=== PATIENT | female | born 1945 | race Caucasian/White ===

== ENCOUNTER 2023-05-09 09:34 | Emergency (ER) | payer MEDICARE, SELFPAY ==
[2023-05-09] VITALS (30 sets, daily range): BP systolic 101–168; BP diastolic 60–75; PULSE 86–100; RESP 18; TEMP 36.3; O2SAT 91–98; BMI 40.2
[2023-05-09 10:23] LABS: Troponin, Point-of-Care* 0.01 ng/ml (0.01-0.04)
[2023-05-09 10:45] LABS: Basophils Absolute Auto 0.03 K/uL (0.00-0.30); Basophils Percent Auto 0.4 % (0.0-3.0); Eosinophils Absolute Auto 0.26 K/uL (0.00-0.50); Eosinophils Percent Auto 3.1 % (0.0-7.0); Hematocrit 33.9 % (33.0-51.0); Immature Granulocytes Abs Auto 0.11 K/uL (0.00-0.30); Immature Granulocytes Pct Auto 1.3 %; Lymphocytes Absolute Auto 2.47 K/uL (0.90-2.90); Lymphocytes Percent Auto 29.3 % (20-44); Mean Corpuscular HGB Conc 32 gm/dL (32-36); Mean Corpuscular Hemoglobin 31 pg (26-34); Mean Corpuscular Volume 96 fL (80-100); Monocytes Percent Auto 7.7 % (0.0-11.0); Neutrophils Absolute Auto 4.92 K/uL (1.7-7.0); Neutrophils Percent Auto 58.2 % (42.0-72.0); Platelet Count* 287 K/uL (140-440); Red Blood Count 3.55 m/uL (4.00-5.20); White Blood Count* 8.44 K/uL (4.50-11.00)
--- NOTE | 2023-05-09 10:45 | ED.CHESTPAIN ---
HPI - Chest Pain General Time Seen by Provider: 10:46 Date Seen: 05/09/23 Chief Complaint: Chest Pain Stated Complaint: chest pain Time Seen by Provider: 05/09/23 10:44 Source: patient and RN notes reviewed Mode of arrival: ambulatory Limitations: no limitations History of Present Illness HPI narrative: this 77-year-old female is ambulatory into the ED with left-sided chest pain. It has been there about 3 hours. She denies any radiation. She has had a history of an CA in May 2004 with stent placement. The pain today does not feel like that. She states that felt more initially like a pulled muscle, she had shoveled snow. She had went to work felt fine and then when she came home started having increased arm and shoulder pain. This does feel different. She is not short of breath with it, no palpitations. She admits she had a bad cold about 2 weeks ago and had a lot of coughing with it. That is better now. She is having no acute GI symptoms with this but does tell me that if she eats too fast her food will get stuck. She sometimes will have to make herself vomit to get the food to pass. She denies any acute heartburn or reflux symptoms. Did review with her that she really should get scheduled to have an EGD, regardless of what happens today, she will need to follow up and get that scheduled through her primary care provider. she does state that she is had pedal and lower extremity edema that is been problematic, is improved by the diuretic her doctor prescribed. She denies any dysphagia this am, states that she had a chicken salad sandwich that went down too goo. She does not believe she is had any stress testing since the stent placement. She is scheduled to have an echo next week. MD complaint: chest pain Pertinent past history: coronary artery disease and prior CA Related Data On Oral Contraceptives: No Home Medications Medication Instructions Recorded Confirmed allopurinol 100 mg tablet 200 mg PO DAILY 05/09/23 05/09/23 amlodipine 10 mg tablet 10 mg PO DAILY 05/09/23 05/09/23 atorvastatin 20 mg tablet 20 mg PO QPM 05/09/23 05/09/23 atorvastatin 40 mg tablet 40 mg PO QPM 05/09/23 05/09/23 famotidine 20 mg tablet 20 mg PO QPM 05/09/23 05/09/23 furosemide 20 mg tablet 20 mg PO QAM 05/09/23 05/09/23 furosemide 40 mg tablet 40 mg PO QAM 05/09/23 05/09/23 lisinopril 30 mg tablet 30 mg PO DAILY 05/09/23 05/09/23 metformin 500 mg tablet,extended 500 mg PO QPM 05/09/23 05/09/23 release 24 hr metoprolol succinate 100 mg 100 mg PO DAILY 05/09/23 05/09/23 tablet,extended release 24 hr spironolactone 25 mg tablet 25 mg PO QAM 05/09/23 05/09/23 trospium 20 mg tablet 20 mg PO QPM 05/09/23 05/09/23 Previous Rx's Medication Instructions Recorded omeprazole 20 mg capsule,delayed 20 mg PO DAILY #14 caps 05/09/23 release Allergies Allergy/AdvReac Type Severity Reaction Status Date / Time No Known Drug Allergies Allergy Verified 05/09/23 09:43 Review of Systems Status of ROS Reports: 6 or more systems reviewed and unremarkable except as noted in History and below Exam Const Vital Signs, click to edit/add: Vital Signs - 24 hr 05/09/23 09:41 05/09/23 09:47 05/09/23 09:58 Temperature 97.4 F L Pulse Rate 91 93 Pulse Rate [Right Pulse Oximeter] 100 Respiratory Rate 18 Blood Pressure 142/64 H Blood Pressure [Left Upper Arm] 168/67 H Pulse Oximetry 98 98 97 Oxygen Delivery Method Room Air 05/09/23 10:00 05/09/23 10:02 05/09/23 10:23 Temperature Pulse Rate 92 90 91 Pulse Rate [Right Pulse Oximeter] Respiratory Rate Blood Pressure 136/68 Blood Pressure [Left Upper Arm] Pulse Oximetry 98 98 98 Oxygen Delivery Method 05/09/23 10:24 05/09/23 10:30 05/09/23 10:41 Temperature Pulse Rate 92 90 90 Pulse Rate [Right Pulse Oximeter] Respiratory Rate Blood Pressure 138/72 130/69 Blood Pressure [Left Upper Arm] Pulse Oximetry 97 97 97 Oxygen Delivery Method 05/09/23 10:45 05/09/23 11:05 05/09/23 11:06 Temperature Pulse Rate 91 97 94 Pulse Rate [Right Pulse Oximeter] Respiratory Rate Blood Pressure 127/71 Blood Pressure [Left Upper Arm] Pulse Oximetry 97 96 94 Oxygen Delivery Method 05/09/23 11:09 05/09/23 11:12 05/09/23 11:15 Temperature Pulse Rate 92 92 93 Pulse Rate [Right Pulse Oximeter] Respiratory Rate Blood Pressure 141/75 H Blood Pressure [Left Upper Arm] Pulse Oximetry 95 95 93 Oxygen Delivery Method 05/09/23 11:22 05/09/23 11:30 05/09/23 11:41 Temperature Pulse Rate 95 95 91 Pulse Rate [Right Pulse Oximeter] Respiratory Rate Blood Pressure 111/60 101/67 Blood Pressure [Left Upper Arm] Pulse Oximetry 94 91 91 Oxygen Delivery Method 05/09/23 11:45 05/09/23 12:00 05/09/23 12:01 Temperature Pulse Rate 90 89 89 Pulse Rate [Right Pulse Oximeter] Respiratory Rate Blood Pressure 109/64 Blood Pressure [Left Upper Arm] Pulse Oximetry 91 92 94 Oxygen Delivery Method 05/09/23 12:26 05/09/23 12:30 05/09/23 12:45 Temperature Pulse Rate 91 88 86 Pulse Rate [Right Pulse Oximeter] Respiratory Rate Blood Pressure Blood Pressure [Left Upper Arm] Pulse Oximetry 94 96 95 Oxygen Delivery Method 05/09/23 12:46 05/09/23 13:00 05/09/23 13:05 Temperature Pulse Rate 87 88 87 Pulse Rate [Right Pulse Oximeter] Respiratory Rate Blood Pressure Blood Pressure [Left Upper Arm] Pulse Oximetry 95 97 97 Oxygen Delivery Method 05/09/23 13:06 05/09/23 13:17 05/09/23 13:20 Temperature Pulse Rate 86 98 91 Pulse Rate [Right Pulse Oximeter] Respiratory Rate Blood Pressure 149/73 H Blood Pressure [Left Upper Arm] Pulse Oximetry 97 92 97 Oxygen Delivery Method Patient is alert, interactive, no apparent distress, seen in exam room 8. She is able to speak in complete sentences. Pupils are equal round and reactive sclera clear with the exception of a subconjunctival hematoma laterally in the right eye. Face is symmetric. Neck is supple, no cervical adenopathy, no thyromegaly masses or nodules. Lungs are clear, good air entry, no wheezing or crackles. CV regular rate and rhythm, 1 to 2/6 systolic ejection murmur heard right sternal border, normal S1-S2, no S3-S4. Abdomen is obese but soft, nontender, no palpable masses. She has thickened lower extremities without any overlying skin changes, not necessarily pitting edema however. Documenting provider has reviewed patient's vital signs: yes Course Course ED Course: This 77-year-old female has a history of coronary artery disease, was able to review with her that her point of care troponin is normal. We will continue to monitor her. Reviewed with her that we need to follow her cardiac enzyme over time, will have a repeat troponin and EKG in 3 hours. Other possible etiologies are atypical presentation of pneumonia or possible thromboembolic disease given recent URI. We did discuss increase inflammatory change with COVID, it is possible that she could have had COVID a few weeks ago which may put her at increased risk for pulmonary emboli. GI symptomatology presenting atypically is also possible. We are going to have her try nitroglycerin. Given that her initial troponin is normal, will hold off on aspirin at this time. Reevaluation(s) Time of Reevaluation #1: 11:47 Reevaluation #1: Patient's D-dimer has come back markedly elevated at 2.69. Patient reveals that the nitroglycerin did nothing to her chest symptoms. We will be proceeding with a chest CT PE protocol which she agrees to. I have ordered a follow-up EKG and troponin for 1:00 p.m. today. At this point holding on aspirin given the elevated D-dimer, may end up needing blood thinners. Will need to reconsider aspirin if we start seeing changes that are more suggestive of acute coronary syndrome or CA. Time of Reevaluation #2: 13:53 Reevaluation #2: Patient's 2nd cardiac enzyme has come back normal, EKG is showing no acute change. Her chest CT PE protocol showing no acute pathology but there is a hiatal hernia. This does make me suspicious that her current symptoms may be from GI issues. She is on famotidine at night. Will have her add in a course of omeprazole, will give 1st dose here. She absolutely needs to follow up in clinic next week, needs to complete her echo, consider getting cardiac stress testing done or cardiology referral, needs an EGD as well for her dysphagia complaints. Plan will be to discharge to home in the interim. We have discussed that we have not completely ruled out underlying ischemic disease, we have just confirmed no active heart attack or rise in her troponin today. If she has worsening or progressive symptoms, she does need to return to the ER for further evaluation. Vital Signs Vital signs: Initial Vital Signs Temperature 97.4 F L 05/09/23 09:41 Temperature Source Temporal Artery Scan 05/09/23 09:41 Pulse Rate 100 05/09/23 09:41 Pulse Rhythm Regular 05/09/23 09:41 Respiratory Rate 18 05/09/23 09:41 Blood Pressure 168/67 H 05/09/23 09:41 Blood Pressure Mean 100 05/09/23 09:41 Blood Pressure Position Sitting 05/09/23 09:41 Pulse Oximetry 98 05/09/23 09:41 Oxygen Delivery Method Room Air 05/09/23 09:41 Vital Signs Temperature 97.4 F L 05/09/23 09:41 Pulse Rate 100 05/09/23 09:41 Respiratory Rate 18 05/09/23 09:41 Blood Pressure 168/67 H 05/09/23 09:41 Pulse Oximetry 98 05/09/23 09:41 Oxygen Delivery Method Room Air 05/09/23 09:41 Temperature 97.4 F L 05/09/23 09:41 Pulse Rate 91 05/09/23 13:20 Respiratory Rate 18 05/09/23 09:41 Blood Pressure 149/73 H 05/09/23 13:20 Pulse Oximetry 97 05/09/23 13:20 Oxygen Delivery Method Room Air 05/09/23 09:41 Medications Administered Medications: Generic Name Dose Route Start Last Admin Trade Name Freq PRN Reason Stop Dose Admin Omeprazole 20 mg 05/09/23 13:53 05/09/23 14:00 Omeprazole [address] PO 05/09/23 13:54 20 mg ONCE ONE Administration Discontinued Medications Generic Name Dose Route Start Last Admin Trade Name Freq PRN Reason Stop Dose Admin Nitroglycerin 0.4 mg 05/09/23 10:54 05/09/23 11:12 Nitroglycerin 0.4 Mg Tab.Subl SUBLINGUAL 05/09/23 10:55 0.4 mg ONCE ONE Administration MDM - Chest Pain Lab Data Attestation: I reviewed the patient's lab results. Labs: Lab Results 05/09/23 05/09/23 05/09/23 Range/Units 09:55 09:59 10:53 WBC 8.44 (4.50-11.00) K/uL RBC 3.55 L (4.00-5.20) m/uL Hgb 11.0 L (12.0-16.0) gm/dL Hct 33.9 (33.0-51.0) % MCV 96 (80-100) fL MCH 31 (26-34) pg MCHC 32 (32-36) gm/dL RDW Coeff of Anila 14.0 (11.5-15.5) % Plt Count 287 (140-440) K/uL Neut % (Auto) 58.2 (42.0-72.0) % Lymph % (Auto) 29.3 (20-44) % [place] % (Auto) 7.7 (0.0-11.0) % Eos % (Auto) 3.1 (0.0-7.0) % Baso % (Auto) 0.4 (0.0-3.0) % Neut # (Auto) 4.92 (1.7-7.0) K/uL Lymph # (Auto) 2.47 (0.90-2.90) K/uL [place] # (Auto) 0.60 (0.00-0.90) K/UL Eos # (Auto) 0.26 (0.00-0.50) K/uL Baso # (Auto) 0.03 (0.00-0.30) K/uL Abs Immat Gran (auto) 0.11 (0.00-0.30) K/uL Imm/Tot Granulo (auto) 1.3 % D-Dimer Quant (PE/DVT) 2.69 H (0.00-0.50) ug/ml Sodium 140 (135-149) mmol/L Potassium 3.9 (3.6-5.1) mmol/L Chloride 106 (96-114) mmol/L Carbon Dioxide 22 (20-32) mmol/L Anion Gap 12 (7-15) mEq/L BUN 34 H (7-30) mg/dL Creatinine 1.2 (0.5-1.5) mg/dL Estimated Creat Clear 35.59 Estimated GFR 46 ml/min Glucose 152 H (60-115) mg/dL Calcium 10.0 (8.4-10.6) mg/dL Magnesium 1.7 (1.5-2.6) mg/dL Total Bilirubin 0.8 (0.1-1.5) mg/dL Direct Bilirubin 0.2 (0.0-0.5) mg/dL AST 23 (12-35) U/L ALT 21 (4-35) U/L Alkaline Phosphatase 112 (40-150) U/L Troponin I < 0.01 L (0.01-0.04) ng/mL NT-Pro-B Natriuret Pep 34 pg/mL Total Protein 7.6 (6.0-8.3) g/dL Albumin 4.8 (3.3-5.0) g/dL Lab Acknowledgement Test Added POC Troponin I 0.01 (0.01-0.04) ng/ml Imaging Data Chest x-ray: Attestation: I have reviewed the pertinent imaging results. Radiologist's impression: Patient: MARCELINA DEE Facility:?[facility] Patient ID:?[id number] Site Patient ID:?[id number] Site :?[id number] Study:?XRay Chest PORTABLE-05/09/2023 11:08:26 AM Ordering Physician:?Luis Carr Final Report: INDICATION: Chest pain. COMPARISON: 12/27/2009. Findings: Portable AP view of the chest was obtained. The cardiac silhouette and pulmonary vasculature are within normal limits. The lungs are clear bilaterally. IMPRESSION: No evidence of acute pulmonary disease. Dictated by Wander Matson MD @ 05/09/2023 11:38:11 AM (Electronic Signature) CT scan - chest: Attestation: I have reviewed the pertinent imaging results. Radiologist's impression: [facility] Facility:?[facility] Patient ID:?[id number] Site Patient ID:?[id number]. Site :?[id number] Study:?CT Chest Angio PE W/ISOVUE 370 95CC-05/09/2023 12:31:56 PM Ordering Physician:Reji Carr Final Report: INDICATION: Chest pain. Elevated D-dimer. TECHNIQUE: Multiple axial images were obtained from the apices to the diaphragm per the pulmonary artery embolism protocol after administration of 95 mL Isovue 370 intravenously. Sagittal and coronal re-formatted images were obtained. COMPARISON: Chest x-ray done earlier the same day. FINDINGS: There is minimal atelectasis in the dependent portion of the lungs. The lungs otherwise are clear. There is no suspicious pulmonary nodule. There is no pleural effusion. There is a calcified granuloma in the left lower lobe. There is no axillary, mediastinal or hilar adenopathy. There are atherosclerotic calcifications including coronary artery calcifications. There is no pulmonary artery embolism seen. There is a moderate-sized hiatal hernia. There are degenerative changes in the spine. There is a 0.7 cm cyst in the left lobe of the liver. There are bilateral kidney cysts. There is a rim calcified cyst in the left kidney. IMPRESSION: No acute abnormality. No pulmonary artery embolism seen. Hiatal hernia. Please note that all CT scans at this facility use dose modulation, iterative reconstruction, and/or weight-based dosing when appropriate to reduce radiation dose to as low as reasonably achievable. Dictated by Wander Matson MD @ 05/09/2023 12:56:22 PM (Electronic Signature) ECG Data Attestation: I personally reviewed and interpreted this ECG as follows: ( sinus rhythm with first-degree AV block, 92 beats per minute. Bifascicular block But does appear that she is developing generalized intra conduction delay. QT corrected 467 milliseconds. No concerning change for ischemia at this time.) ECG interpretation date: 05/09/23 ECG interpretation time: 10:46 Prior ECG tracings: not available for review Interpretation: Repeat EKG at 12:59 p.m. showing sinus rhythm with first-degree AV block, 87 beats per minute. Has the intra conduction delay, appears the same as her prior EKG. The machine read is calling this 1 incomplete left bundle branch block. QT corrected stable at 459 milliseconds. Discharge Plan Discharge Clinical Impression: Hiatal hernia Chest pain Qualifiers: Chest pain type: unspecified Qualified Code(s): R07.9 - Chest pain, unspecified Dysphagia Qualifiers: Dysphagia type: unspecified Qualified Code(s): R13.10 - Dysphagia, unspecified Patient Disposition: Home, Self-Care Condition: Stable Instructions: Chest Pain (ED), Hiatal Hernia (ED), Dysphagia (ED) Additional Instructions: Take omeprazole daily, next dose due tomorrow. Recommend taking omeprazole morning, continue with your other medicines as you have been. Need to schedule follow-up with your primary provider next week, need to have an EGD scheduled, discussed getting cardiac stress testing set up. Your provider may want to see what the echo results are before scheduling a specific stress test; Cardiology referral could be considered as well. In the meantime, if you have increasing chest symptoms, further concerns, feel you are worsening, do recommend re-evaluation. Activity Level: Activity as Tolerated Prescriptions: New omeprazole 20 mg capsule,delayed release(DR/EC) 20 mg PO DAILY Qty: 14 0RF No Action furosemide 40 mg tablet 40 mg PO QAM atorvastatin 40 mg tablet 40 mg PO QPM atorvastatin 20 mg tablet 20 mg PO QPM metoprolol succinate 100 mg tablet extended release 24 hr 100 mg PO DAILY allopurinol 100 mg tablet 200 mg PO DAILY spironolactone 25 mg tablet 25 mg PO QAM famotidine 20 mg tablet 20 mg PO QPM amlodipine 10 mg tablet 10 mg PO DAILY lisinopril 30 mg tablet 30 mg PO DAILY furosemide 20 mg tablet 20 mg PO QAM metformin 500 mg tablet extended release 24 hr 500 mg PO QPM trospium 20 mg tablet 20 mg PO QPM Follow Up/Referrals: Gregory Warner MD [Staff Physician] - Stand Alone Forms: iPositioning Info Instructions
[2023-05-09 10:52] LABS: Slide Review Reflex No
--- NOTE | 2023-05-09 10:54 | CRLHL7_ITS ---
For Patients: As a result of the Century Cures Act, medical imaging exams and procedure reports are released immediately into your electronic medical record. You may view this report before your referring provider. If you have questions, please contact your health care provider. INDICATION: Chest pain. COMPARISON: 12/27/2009. Findings: Portable AP view of the chest was obtained. The cardiac silhouette and pulmonary vasculature are within normal limits. The lungs are clear bilaterally. IMPRESSION: No evidence of acute pulmonary disease. Dictated by Wander Matson MD @ 05/09/2023 11:38:11 AM (Electronically Signed)
[2023-05-09 11:08] LABS: Albumin* 4.8 g/dL (3.3-5.0)
[2023-05-09 11:09] LABS: Chloride* 106 mmol/L (96-114); Potassium* 3.9 mmol/L (3.6-5.1); Sodium* 140 mmol/L (135-149)
[2023-05-09 11:11] LABS: Alkaline Phosphatase* 112 U/L (40-150); Anion Gap 12 mEq/L (7-15); Aspartate Amino Transferase* 23 U/L (12-35); Bilirubin Direct* 0.2 mg/dL (0.0-0.5); Bilirubin Total* 0.8 mg/dL (0.1-1.5); Blood Urea Nitrogen* 34 mg/dL (7-30); Carbon Dioxide* 22 mmol/L (20-32); Creatinine* 1.2 mg/dL (0.5-1.5); Est. Creatinine Clearance* 35.59; Estimated Glomerular Filt Rate 46 ml/min; Glucose* 152 mg/dL (60-115); Total Protein* 7.6 g/dL (6.0-8.3)
[2023-05-09 11:12] LABS: Alanine Aminotransferase* 21 U/L (4-35)
[2023-05-09] MEDS: NITROGLYCERIN 0.4 MG TAB.SUBL SUBLINGUAL (11:12)
[2023-05-09 11:17] LABS: D Dimer Quantitative* 2.69 ug/ml (0.00-0.50)
[2023-05-09 11:21] LABS: NT Pro B Type NatriureticPept* 34 pg/mL
[2023-05-09 11:24] LABS: Troponin I* < 0.01 ng/mL (0.01-0.04)
[2023-05-09 11:28] LABS: Magnesium* 1.7 mg/dL (1.5-2.6)
--- NOTE | 2023-05-09 11:51 | CRLHL7_ITS ---
For Patients: As a result of the Century Cures Act, medical imaging exams and procedure reports are released immediately into your electronic medical record. You may view this report before your referring provider. If you have questions, please contact your health care provider. INDICATION: Chest pain. Elevated D-dimer. TECHNIQUE: Multiple axial images were obtained from the apices to the diaphragm per the pulmonary artery embolism protocol after administration of 95 mL Isovue 370 intravenously. Sagittal and coronal re-formatted images were obtained. COMPARISON: Chest x-ray done earlier the same day. FINDINGS: There is minimal atelectasis in the dependent portion of the lungs. The lungs otherwise are clear. There is no suspicious pulmonary nodule. There is no pleural effusion. There is a calcified granuloma in the left lower lobe. There is no axillary, mediastinal or hilar adenopathy. There are atherosclerotic calcifications including coronary artery calcifications. There is no pulmonary artery embolism seen. There is a moderate-sized hiatal hernia. There are degenerative changes in the spine. There is a 0.7 cm cyst in the left lobe of the liver. There are bilateral kidney cysts. There is a rim calcified cyst in the left kidney. IMPRESSION: No acute abnormality. No pulmonary artery embolism seen. Hiatal hernia. Please note that all CT scans at this facility use dose modulation, iterative reconstruction, and/or weight-based dosing when appropriate to reduce radiation dose to as low as reasonably achievable. Dictated by Wander Matson MD @ 05/09/2023 12:56:22 PM (Electronically Signed)
[2023-05-09] MEDS: OMEPRAZOLE 20 MG CAPSULE DR PO (14:00)
[2023-05-14 14:08] LABS: Troponin, Point-of-Care* 0.01 ng/ml (0.01-0.04)
== END 2023-05-09 14:24 | disposition home or self-care (01) ==
PROVIDERS: Emergency Provider Family Medicine; PCP Family Medicine
DX: R07.9 Chest pain, unspecified (principal); R13.10 Dysphagia, unspecified
CPT/HCPCS: 36415; 71045; 71275; 80048; 80076; 83735; 83880; 84484; 85025; 85379; 93005; 99285; A9270; Q9967

== ENCOUNTER 2023-07-10 11:14 | Inpatient (IN) | payer MEDICARE, SELFPAY ==
[2023-07-10 11:18] VITALS: BP 103/61; PULSE 71; RESP 20; TEMP 36.3; O2SAT 98; BMI 38.4
--- NOTE | 2023-07-10 12:30 | ED_ITS ---
HPI - General Adult General Chief complaint: Diarrhea Stated complaint: diarrhea Time Seen by Provider: 07/10/23 11:27 Source: patient Mode of arrival: ambulatory Limitations: no limitations History of Present Illness HPI narrative: 78-year-old female coming in today complaining diarrhea going on for about 3 weeks. She can have anywhere from 1-3 episodes of loose stools per day. Stools are very watery. They are not dark or bloody. She denies any abdominal pain or cramping. She is passing gas. She states that she traveled to [place] about 3 weeks ago but no camping or significant outdoor activity. She denies nausea or vomiting. Appetite has been less than usual. She states that she has lost about 10 lb in the last 3 weeks secondary to decreased appetite. No fevers or chills. No recent antibiotic use. Past medical history significant for coronary artery disease status post [place], obesity, diabetes, hypertension, colon cancer with partial colectomy several years ago. Also states that she has history of kidney disease, unsure what her baseline creatinine is. Related Data Home Medications Medication Instructions Recorded Confirmed allopurinol 100 mg tablet 200 mg PO DAILY 05/09/23 07/10/23 amlodipine 10 mg tablet 10 mg PO DAILY 05/09/23 07/10/23 atorvastatin 20 mg tablet 20 mg PO QPM 05/09/23 07/10/23 atorvastatin 40 mg tablet 40 mg PO QPM 05/09/23 07/10/23 famotidine 20 mg tablet 20 mg PO QPM 05/09/23 07/10/23 furosemide 20 mg tablet 20 mg PO QAM 05/09/23 07/10/23 furosemide 40 mg tablet 40 mg PO [facility] 05/09/23 07/10/23 lisinopril 30 mg tablet 30 mg PO DAILY 05/09/23 07/10/23 metformin 500 mg tablet,extended 500 mg PO QPM 05/09/23 07/10/23 release 24 hr metoprolol succinate 100 mg 100 mg PO DAILY 05/09/23 07/10/23 tablet,extended release 24 hr spironolactone 25 mg tablet 25 mg PO QAM 05/09/23 07/10/23 trospium 20 mg tablet 20 mg PO QPM 05/09/23 07/10/23 Previous Rx's Medication Instructions Recorded omeprazole 20 mg capsule,delayed 20 mg PO DAILY #14 caps 05/09/23 release Allergies Allergy/AdvReac Type Severity Reaction Status Date / Time No Known Drug Allergies Allergy Verified 07/10/23 11:24 Review of Systems Status of ROS: Reports: 10 or more systems reviewed and unremarkable except as noted in History and below Exam Narrative: Exam Narrative: Overweight, well-developed patient in no acute distress. Alert and oriented. Answers questions appropriately. Mood and affect are appropriate. Thoughts are goal oriented and rational. No tangential or magical thinking noted. Patient speaks in full sentences without needing to catch her breath. HEENT: Normocephalic atraumatic. Pupils are equally round reactive to light. Extraocular muscles are intact. Conjunctivae are moist without any icterus noted. Dry mucous membranes. Posterior pharynx is normal. Cardiovascular: Heart is regular rate and rhythm S1 and S2 are present with a soft 1/6 systolic murmur. Lungs: Clear to auscultation bilaterally. Abdomen: Soft and nontender nondistended with normal bowel sounds. No guarding or rebound. Difficult to assess for organomegaly secondary to body habitus. Extremities: Bilateral lower extremities show 1+ pitting edema Skin: Well perfused without any obvious rashes. Const: Vital Signs, click to edit/add: Vital Signs - 24 hr 07/10/23 11:18 Temperature 97.4 F L Pulse Rate [Pulse Oximeter] 71 Respiratory Rate 20 Blood Pressure [Ri ght Upper Arm] 103/61 Pulse Oximetry 98 Oxygen Delivery Me thod Room Air Course Course ED Course: IV is established and patient started on fluids. Labs were drawn and WBC shows a mildly elevated white cell count 12.6, hemoglobin 10.2, platelet count 281. Chemistry show normal sodium 141, potassium is 5.9, chloride 116, BUN 110, creatinine 2.2. Calcium is elevated at 10.7. Normal CRP. LFTs are unremarkable. At this point, did do an EKG read by me, shows normal sinus rhythm with a first- degree AV block and a pulse of 68. She does have left axis deviation. If after receiving 1 L of normal saline, chemistries were rechecked and unfortunately the potassium went up to 6.1, creatinine did go down to 2.0. Given the patient's age and comorbidities, decided to admit the patient to observation for hyperkalemia. Of note, she did not have any bowel movements while she was in the ED. Vital Signs Vital signs: Initial Vital Signs Temperature 97.4 F L 07/10/23 11:18 Temperature Source Temporal Artery Scan 07/10/23 11:18 Pulse Rate 71 07/10/23 11:18 Respiratory Rate 20 07/10/23 11:18 Blood Pressure 103/61 07/10/23 11:18 Blood Pressure Mean 75 07/10/23 11:18 Blood Pressure Position Sitting 07/10/23 11:18 Pulse Oximetry 98 07/10/23 11:18 Oxygen Delivery Method Room Air 07/10/23 11:18 Vital Signs Temperature 97.4 F L 07/10/23 11:18 Pulse Rate 71 07/10/23 11:18 Respiratory Rate 20 07/10/23 11:18 Blood Pressure 103/61 07/10/23 11:18 Pulse Oximetry 98 07/10/23 11:18 Oxygen Delivery Method Room Air 07/10/23 11:18 Temperature 97.4 F L 07/10/23 11:18 Pulse Rate 71 07/10/23 11:18 Respiratory Rate 20 07/10/23 11:18 Blood Pressure 103/61 07/10/23 11:18 Pulse Oximetry 98 07/10/23 11:18 Oxygen Delivery Method Room Air 07/10/23 11:18 Medications Administered Medications: Discontinued Medications Generic Name Dose Route Start Last Admin Trade Name Freq PRN Reason Stop Dose Admin Sodium Chloride 1,000 mls @ 1,000 mls/hr 07/10/23 11:45 07/10/23 13:24 0.9 % Sodium Chloride 1000 Ml IV 07/10/23 12:44 Infused .Q1H NATALIYA Infusion Medical Decision Making [facility] Narrative Medical decision making narrative: 78-year-old female with hyperkalemia and dehydration. Patient will be admitted for further management. Lab Data Lab results reviewed: Yes I reviewed the patient's lab results Labs: Lab Results 07/10/23 07/10/23 Range/Units 12:20 14:20 WBC 12.16 H (4.50-11.00) K/uL RBC 3.34 L (4.00-5.20) m/uL Hgb 10.2 L (12.0-16.0) gm/dL Hct 31.4 L (33.0-51.0) % MCV 94 (80-100) fL MCH 31 (26-34) pg MCHC 33 (32-36) gm/dL RDW Coeff of Anila 15.1 (11.5-15.5) % Plt Count 281 (140-440) K/uL Neut % (Auto) 76.3 H (42.0-72.0) % Lymph % (Auto) 15.2 L (20-44) % [place] % (Auto) 6.5 (0.0-11.0) % Eos % (Auto) 0.8 (0.0-7.0) % Baso % (Auto) 0.2 (0.0-3.0) % Neut # (Auto) 9.30 H (1.7-7.0) K/uL Lymph # (Auto) 1.80 (0.90-2.90) K/uL [place] # (Auto) 0.80 (0.00-0.90) K/UL Eos # (Auto) 0.10 (0.00-0.50) K/uL Baso # (Auto) 0.00 (0.00-0.30) K/uL Abs Immat Gran (auto) 0.10 (0.00-0.30) K/uL Imm/Tot Granulo (auto) 1.0 % Sodium 140 141 (135-149) mmol/L Potassium 5.9 H 6.1 H* (3.6-5.1) mmol/L Chloride 116 H 119 H (96-114) mmol/L Carbon Dioxide 12 L 10 L (20-32) mmol/L Anion Gap 12 12 (7-15) mEq/L BUN 110 H 107 H (7-30) mg/dL Creatinine 2.2 H 2.0 H (0.5-1.5) mg/dL Estimated Creat Clear 19.09 21.00 Estimated GFR 22 25 ml/min Glucose 151 H 117 H (60-115) mg/dL Lactate 1.0 (0.5-1.9) mmol/L Calcium 10.7 H 10.7 H (8.4-10.6) mg/dL Total Bilirubin 0.4 (0.1-1.5) mg/dL Direct Bilirubin 0.2 (0.0-0.5) mg/dL AST 16 (12-35) U/L ALT 16 (4-35) U/L Alkaline Phosphatase 99 (40-150) U/L C-Reactive Protein < 0.5 L (0.5-1.0) mg/dL Total Protein 7.8 (6.0-8.3) g/dL Albumin 4.6 (3.3-5.0) g/dL TSH 2.570 (0.270-4.20) uIU/mL ECG Data Attestation: I personally reviewed and interpreted this ECG as follows: Discharge Plan Discharge Clinical Impression: Dehydration, Hyperkalemia Patient Disposition: Admitted As Observation Condition: Stable Prescriptions: No Action furosemide 40 mg tablet 40 mg PO QAM atorvastatin 40 mg tablet 40 mg PO QPM atorvastatin 20 mg tablet 20 mg PO QPM metoprolol succinate 100 mg tablet extended release 24 hr 100 mg PO DAILY allopurinol 100 mg tablet 200 mg PO DAILY spironolactone 25 mg tablet 25 mg PO QAM famotidine 20 mg tablet 20 mg PO QPM amlodipine 10 mg tablet 10 mg PO DAILY lisinopril 30 mg tablet 30 mg PO DAILY furosemide 20 mg tablet 20 mg PO QAM metformin 500 mg tablet extended release 24 hr 500 mg PO QPM trospium 20 mg tablet 20 mg PO QPM omeprazole 20 mg capsule,delayed release(DR/EC) 20 mg PO DAILY Qty: 14 0RF Follow Up/Referrals: Denise Lugo DO [Primary Care Provider] -
[2023-07-10 12:34] LABS: Basophils Percent Auto 0.2 % (0.0-3.0); Eosinophils Percent Auto 0.8 % (0.0-7.0); Hematocrit 31.4 % (33.0-51.0); Hemoglobin* 10.2 gm/dL (12.0-16.0); Lymphocytes Percent Auto 15.2 % (20-44); Mean Corpuscular HGB Conc 33 gm/dL (32-36); Mean Corpuscular Hemoglobin 31 pg (26-34); Mean Corpuscular Volume 94 fL (80-100); Monocytes Percent Auto 6.5 % (0.0-11.0); Neutrophils Percent Auto 76.3 % (42.0-72.0); Platelet Count* 281 K/uL (140-440); RDW Coefficient of Variation % 15.1 % (11.5-15.5); Red Blood Count 3.34 m/uL (4.00-5.20); White Blood Count* 12.16 K/uL (4.50-11.00)
[2023-07-10] MEDS: 0.9 % SODIUM CHLORIDE 1000 ml 1,000 ML IV (12:34)
[2023-07-10 12:42] LABS: Slide Review Reflex No
[2023-07-10 12:47] LABS: Albumin* 4.6 g/dL (3.3-5.0); Chloride* 116 mmol/L (96-114); Potassium* 5.9 mmol/L (3.6-5.1); Sodium* 140 mmol/L (135-149)
[2023-07-10 12:49] LABS: Creatinine* 2.2 mg/dL (0.5-1.5); Est. Creatinine Clearance* 19.09; Estimated Glomerular Filt Rate 22 ml/min
[2023-07-10 12:50] LABS: Alanine Aminotransferase* 16 U/L (4-35); Alkaline Phosphatase* 99 U/L (40-150); Anion Gap 12 mEq/L (7-15); Aspartate Amino Transferase* 16 U/L (12-35); Bilirubin Direct* 0.2 mg/dL (0.0-0.5); Bilirubin Total* 0.4 mg/dL (0.1-1.5); Blood Urea Nitrogen* 110 mg/dL (7-30); Carbon Dioxide* 12 mmol/L (20-32); Glucose* 151 mg/dL (60-115); Total Protein* 7.8 g/dL (6.0-8.3)
[2023-07-10 12:51] LABS: Calcium* 10.7 mg/dL (8.4-10.6)
[2023-07-10 12:54] LABS: C Reactive Protein* < 0.5 mg/dL (0.5-1.0)
[2023-07-10 14:41] LABS: Chloride* 119 mmol/L (96-114); Sodium* 141 mmol/L (135-149)
[2023-07-10 14:44] LABS: Estimated Glomerular Filt Rate 25 ml/min
[2023-07-10 14:45] LABS: Anion Gap 12 mEq/L (7-15); Blood Urea Nitrogen* 107 mg/dL (7-30); Calcium* 10.7 mg/dL (8.4-10.6); Carbon Dioxide* 10 mmol/L (20-32); Glucose* 117 mg/dL (60-115)
[2023-07-10 15:00] LABS: Potassium* 6.1 mmol/L (3.6-5.1)
[2023-07-10] MEDS: SODIUM ZIRCONIUM CYCLOSILICATE 10 GM PO (15:18)
[2023-07-10 15:56] LABS: C.Difficile Negative (Negative); CDIFFEPI 027 PRESUMPTIVE NEGATIVE (Negative)
[2023-07-10] MEDS: FUROSEMIDE 10 MG/ML inj 20 MG IVP (16:03)
[2023-07-10] MEDS: LACTATED RINGERS 500 ML 500 ML IV (16:06)
[2023-07-10 16:16] VITALS: BP 113/68; PULSE 66; RESP 20; TEMP 36.4; O2SAT 98; BMI 37.8
--- NOTE | 2023-07-10 16:39 | PM.IMHP1 ---
Hospitalist- H&P: HPI History of Present Illness Date Seen: 07/10/23 Chief complaint: diarrhea Narrative: Jhon Olivas is a 78 year old female who presented to the ER for concerns of persistent diarrhea, accompanied by weakness. Her diarrhea started about 3 weeks ago, was initially every 1-2 hours; over the past week it has decreased to approximately 1-3 episodes per day. She has never had bloody stools. She has had no abdominal pain or nausea, but has been eating less secondary to diarrhea and believes she has lost weight. She has had no sick contacts. She is up-to-date on her colonoscopy (history of colon cancer in 2009) She has occasionally been lightheaded but has not had any syncope. During the past 3 weeks, she did take a trip to [place] with her friend and during that time trialed Imodium for her symptoms, which was effective. ER course and findings: - negative C diff - creatinine of 2.2 (was 1.2 earlier this year) with hyperkalemia - received fluid bolus, following this her creatinine had improved but potassium increased to >6 Given patient's diarrhea an TETE requiring IV therapy, patient is admitted to the hospital. Medical history is updated below, PCP is Dr. Lugo in [place]. Review of Systems Status of ROS: Reports: 10 or more systems reviewed and unremarkable except as noted in History and below [facility] Medical History (Updated 07/10/23 @ 21:08 by Jeanette Miller MD) Hypercalcemia ?E83.52 - Hypercalcemia (ICD-10) CKD (chronic kidney disease) stage 3, GFR 30-59 ml/min ?N18.30 - Chronic kidney disease, stage 3 unspecified (ICD-10) Hyperlipidemia ?E78.5 - Hyperlipidemia, unspecified (ICD-10) CAD (coronary artery disease) ?I25.10 - Atherosclerotic heart disease of [place] coronary artery without angina pectoris (ICD-10) Gout ?M10.9 - Gout, unspecified (ICD-10) Colon cancer ?C18.9 - Malignant neoplasm of colon, unspecified (ICD-10) Hiatal hernia ?K44.9 - Diaphragmatic hernia without obstruction or gangrene (ICD-10) Tricuspid regurgitation ?I07.1 - Rheumatic tricuspid insufficiency (ICD-10) Non-insulin dependent diabetes mellitus Surgical History (Updated 07/10/23 @ 16:49 by Jeanette Miller MD) Cataract (lens) fragments in eye following cataract surgery, bilateral ?H59.023 - Cataract (lens) fragments in eye following cataract surgery, bilateral (ICD-10) H/O hernia repair ?Z98.890 - Other specified postprocedural states (ICD-10) ?Z87.19 - Personal history of other diseases of the digestive system (ICD-10) Hx of cholecystectomy ?Z90.49 - Acquired absence of other specified parts of digestive tract (ICD-10) Stented coronary artery ?Z95.5 - Presence of coronary angioplasty implant and graft (ICD-10) H/O hemicolectomy ?Z90.49 - Acquired absence of other specified parts of digestive tract (ICD-10) Social History (Updated 07/10/23 @ 17:30 by Jeanette Miller MD) Narrative: Lives with daughter in [place], 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 Has 4 adult children in the area. Former smoker, no ETOH, requests Full Code Status. What is your current living situation?: I presently have a place to live Problems where you live: no known problems Problems where you live details: N/A In the past 12 months, utilities in danger of being shut off: no In past 12 months, lack of transportation kept you from medical appts, meetings, work, or getting things needed for daily living: no In the past 12 mos, have been you worried that your food would run out before you had money to buy more?: never true In the past 12 mos, the food you bought just didn't last and you didn't have money to buy more?: never true Smoking Status: Never smoker Do you use any of these nicotine containing products: None How often do you have a drink containing alcohol: never How often do you have six or more drinks on one occasion: Never AUDIT-C Alcohol total score: 0 Non-prescribed substance use: denies use Caffeine: No How often does anyone, including family, friends and others, physically hurt you: never How often does anyone, including family, friends and others, insult or talk down to you: never How often does anyone, including family, friends and others, threaten you with harm: never How often does anyone, including family, friends and others, scream or curse at you: never Meds Home Medications and Allergies Home Medications Medication Instructions Recorded Confirmed Type allopurinol 100 mg tablet 200 mg PO DAILY 05/09/23 07/10/23 History amlodipine 10 mg tablet 10 mg PO DAILY 05/09/23 07/10/23 History atorvastatin 20 mg tablet 20 mg PO QPM 05/09/23 07/10/23 History atorvastatin 40 mg tablet 40 mg PO QPM 05/09/23 07/10/23 History famotidine 20 mg tablet 20 mg PO QPM 05/09/23 07/10/23 History furosemide 40 mg tablet 40 mg PO QAM 05/09/23 07/10/23 History lisinopril 30 mg tablet 30 mg PO DAILY 05/09/23 07/10/23 History metformin 500 mg tablet,extended 500 mg PO QPM 05/09/23 07/10/23 History release 24 hr metoprolol succinate 100 mg 100 mg PO DAILY 05/09/23 07/10/23 History tablet,extended release 24 hr spironolactone 25 mg tablet 25 mg PO QAM 05/09/23 07/10/23 History trospium 20 mg tablet 20 mg PO HS 05/09/23 07/10/23 History aspirin 81 mg tablet,delayed 81 mg PO DAILY 07/10/23 07/10/23 History release (Adult Low Dose Aspirin) calcium carbonate 600 mg calcium 600 mg PO DAILY 07/10/23 07/10/23 History (1,500 mg) tablet (Calcium) cholecalciferol (vitamin D3) 50 50 mcg PO DAILY 07/10/23 07/10/23 History mcg (2,000 unit) tablet cyanocobalamin (vitamin B-12) 1,000 mcg PO DAILY 07/10/23 07/10/23 History 1,000 mcg tablet diclofenac sodium 1 % topical gel 2 g topical QID PRN 07/10/23 07/10/23 History nitroglycerin 0.4 mg sublingual 0.4 mg sublingual Q5-15M PRN 07/10/23 07/10/23 History tablet (Nitrostat) omeprazole 20 mg capsule,delayed 20 mg PO DAILY 07/10/23 07/10/23 History release tramadol 50 mg tablet 50 mg PO DAILY PRN 07/10/23 07/10/23 History Allergies Allergy/AdvReac Type Severity Reaction Status Date / Time No Known Drug Allergies Allergy Verified 07/10/23 11:24 Exam Narrative: Exam Narrative: GEN: Alert and oriented, answering questions appropriately HEENT: EOMIs bilaterally, no scleral icterus CV: RRR, No concerning murmurs R: LCTA bilaterally without concerning wheezing, air movement adequate Abdomen: Soft, nontender, normal bowel sounds throughout Ext: 2-3+ edema bilateral lower extremities, dry skin noted on ankles without any concerning skin findings Skin: No other concerning skin lesions or rashes on exposed skin Neuro: No focal deficits, no resting tremor Psych: Appropriate Const: Vital Signs, click to edit/add: Vital Signs - 24 hr 07/10/23 11:18 07/10/23 16:16 07/10/23 16:16 Temperature 97.4 F L 97.5 F L Pulse Rate [Pulse Oximeter] 71 66 Respiratory Rate 20 20 20 Blood Pressure [Ri ght Arm] 113/68 Blood Pressure [Ri ght Upper Arm] 103/61 Pulse Oximetry 98 98 98 Oxygen Delivery Me thod Room Air Room Air Room Air Hospitalist - H&P: Result Labs Labs: Short CBC 07/10/23 Range/Units 12:20 WBC 12.16 H (4.50-11.00) K/uL Hgb 10.2 L (12.0-16.0) gm/dL Hct 31.4 L (33.0-51.0) % Plt Count 281 (140-440) K/uL BMP 07/10/23 07/10/23 12:20 14:20 Sodium 140 141 Potassium 5.9 H 6.1 H* Chloride 116 H 119 H Carbon Dioxide 12 L 10 L BUN 110 H 107 H Creatinine 2.2 H 2.0 H Glucose 151 H 117 H Calcium 10.7 H 10.7 H Liver Function 07/10/23 Range/Units 12:20 Total Bilirubin 0.4 (0.1-1.5) mg/dL Direct Bilirubin 0.2 (0.0-0.5) mg/dL AST 16 (12-35) U/L ALT 16 (4-35) U/L Alkaline Phosphatase 99 (40-150) U/L Albumin 4.6 (3.3-5.0) g/dL Assessment and Plan Assessment and plan (1) Acute kidney injury: Problem comment: - likely pre renal given diarrhea and decreased po intake - hold nephrotoxins, received IV fluids in the ER and another small bolus on the floor, follow renal function and electrolytes Status: Acute (2) Hyperkalemia: Problem comment: - 2/ #1: Received Lokelma, 1 dose of Lasix followed by 500 mL bolus of LR with improvement in potassium - hold nephrotoxins, follow lytes closely Status: Acute (3) Diarrhea: Problem comment: - started in May, negative C diff on 07/09 - ddx: Viral syndrome, collagenous verses lymphocytic colitis, food intolerance. Stool cultures pending - trial of Imodium, may need outpatient colonoscopy for further workup if symptoms do not improve Status: Acute (4) CKD (chronic kidney disease) stage 3, GFR 30-59 ml/min: Problem comment: - baseline Cr 1.3, baseline GFR 30s per chart review Status: Acute (5) Hypercalcemia: Problem comment: - chronic, per chart review, unclear source/significance - outpatient PCP f/u for this Status: Acute (6) Non-insulin dependent diabetes mellitus: Problem comment: - last A1C 5.9 03/2023 Status: Acute Plan - per above - SCDs and ambulation for prophylaxis, holding Lovenox given TETE - Patient requests full code status
[2023-07-10] MEDS: ATORVASTATIN 10 MG TABLET 20 MG PO (18:39)
[2023-07-10] MEDS: ATORVASTATIN CALCIUM 40 MG TABLET PO (18:39)
[2023-07-10 18:52] LABS: Chloride* 114 mmol/L (96-114); Potassium* 5.3 mmol/L (3.6-5.1); Sodium* 139 mmol/L (135-149)
[2023-07-10 18:55] LABS: Anion Gap 12 mEq/L (7-15); Blood Urea Nitrogen* 103 mg/dL (7-30); Carbon Dioxide* 13 mmol/L (20-32); Creatinine* 1.9 mg/dL (0.5-1.5); Est. Creatinine Clearance* 22.11; Estimated Glomerular Filt Rate 26 ml/min
[2023-07-10 18:56] LABS: Calcium* 10.6 mg/dL (8.4-10.6); Glucose* 147 mg/dL (60-115)
--- NOTE | 2023-07-10 19:11 | PC.NURSE ---
End of shift [id number]: Pt arrived to med/surg at 1545. She is A&O, VSS and afebrile. Pt is SBA/independent with 2ww in her room. Denies having any pain at this time. BLE 2+ edema. Fine crackles in right posterior base. Pt had x1 loose stool since arrival. C Diff negative in the ER. PIV in left AC SL and C/D/I. 1x dose 20mg IV Lasix given for hyperkalemia and 500 mL LR bolus to maintain kidney function. ?
[2023-07-10 20:15] VITALS: BP 118/65; PULSE 75; RESP 18; TEMP 36.8; O2SAT 98
[2023-07-10] MEDS: ACETAMINOPHEN 325 MG TABLET 650 MG PO (20:29)
[2023-07-10] MEDS: FAMOTIDINE 20 MG TABLET PO (20:30)
[2023-07-10] MEDS: SODIUM CHLORIDE 0.9 % (FLUSH) 10 ML SYRINGE 5 ML IVF (20:30)
[2023-07-10] MEDS: LACTATED RINGERS 1000 ML 1,000 ML 125 ML IV (21:01)
[2023-07-10 23:00] VITALS: PULSE 67
[2023-07-11] VITALS (9 sets, daily range): BP systolic 105–110; BP diastolic 51–68; PULSE 67–77; RESP 16–18; TEMP 36.6–36.9; O2SAT 94–99
[2023-07-11] MEDS: ACETAMINOPHEN 325 MG TABLET 650 MG PO ×2 (05:26→20:10)
--- NOTE | 2023-07-11 06:17 | PC.NURSE ---
End of shift nursing note, care [id number]: Pt alert and oriented, pleasant and cooperative. Vitals stable, used CPAP, RT assessed patient?s machine prior to use. Pt c/o chronic 11/03 pain to R shoulder, PRN Tylenol admin and pt stated relief. Up SBA w/ walker to BR, x1-2 BMs, pt declined need for Loperamide at this time, voiding adequately. Slept well in between cares. IVF of LR at 125ml/hr admin from 2100 to 0100 per order. IV lasix 20mg admin this AM. Continued +2 edema to BLE, pt states current leg size is an improvement from her baseline. Uneventful night, call light within pt reach, pt using appropriately.??
[2023-07-11 06:24] LABS: Basophils Absolute Auto 0.05 K/uL (0.00-0.30); Basophils Percent Auto 0.5 % (0.0-3.0); Eosinophils Absolute Auto 0.21 K/uL (0.00-0.50); Eosinophils Percent Auto 1.9 % (0.0-7.0); Hematocrit 26.5 % (33.0-51.0); Hemoglobin* 8.6 gm/dL (12.0-16.0); Immature Granulocytes Abs Auto 0.08 K/uL (0.00-0.30); Immature Granulocytes Pct Auto 0.7 %; Lymphocytes Absolute Auto 2.99 K/uL (0.90-2.90); Lymphocytes Percent Auto 27.5 % (20-44); Mean Corpuscular HGB Conc 33 gm/dL (32-36); Mean Corpuscular Hemoglobin 31 pg (26-34); Mean Corpuscular Volume 95 fL (80-100); Neutrophils Absolute Auto 6.58 K/uL (1.7-7.0); Neutrophils Percent Auto 60.4 % (42.0-72.0); Platelet Count* 236 K/uL (140-440); RDW Coefficient of Variation % 15.1 % (11.5-15.5); White Blood Count* 10.89 K/uL (4.50-11.00)
[2023-07-11 06:56] LABS: Slide Review Reflex No
[2023-07-11] MEDS: OMEPRAZOLE 20 MG CAPSULE DR PO (06:58)
[2023-07-11] MEDS: FUROSEMIDE 10 MG/ML inj 20 MG IVP (06:58)
[2023-07-11 07:01] LABS: Albumin* 3.7 g/dL (3.3-5.0); Chloride* 118 mmol/L (96-114); Sodium* 140 mmol/L (135-149)
[2023-07-11 07:02] LABS: Potassium* 5.7 mmol/L (3.6-5.1)
[2023-07-11 07:04] LABS: Alanine Aminotransferase* 14 U/L (4-35); Alkaline Phosphatase* 87 U/L (40-150); Anion Gap 10 mEq/L (7-15); Aspartate Amino Transferase* 14 U/L (12-35); Bilirubin Total* 0.4 mg/dL (0.1-1.5); Blood Urea Nitrogen* 96 mg/dL (7-30); Calcium* 9.9 mg/dL (8.4-10.6); Carbon Dioxide* 12 mmol/L (20-32); Creatinine* 1.7 mg/dL (0.5-1.5); Est. Creatinine Clearance* 24.71; Estimated Glomerular Filt Rate 30 ml/min; Glucose* 108 mg/dL (60-115); Total Protein* 6.4 g/dL (6.0-8.3)
[2023-07-11 07:05] LABS: Magnesium* 1.8 mg/dL (1.5-2.6)
[2023-07-11] MEDS: CALCIUM GLUC 1,000MG/50 ML 1,000 MG/50 ML BAG 100 MG IVPB (08:20)
[2023-07-11] MEDS: METOPROLOL SUCCINATE (XL) 100 MG TAB PO (09:51)
[2023-07-11] MEDS: SODIUM CHLORIDE 0.9 % (FLUSH) 10 ML SYRINGE 5 ML IVF ×2 (09:52→21:35)
[2023-07-11 14:27] LABS: Chloride* 118 mmol/L (96-114); Potassium* 5.4 mmol/L (3.6-5.1); Sodium* 140 mmol/L (135-149)
[2023-07-11 14:30] LABS: Anion Gap 10 mEq/L (7-15); Blood Urea Nitrogen* 87 mg/dL (7-30); Calcium* 10.3 mg/dL (8.4-10.6); Carbon Dioxide* 12 mmol/L (20-32); Creatinine* 1.6 mg/dL (0.5-1.5); Est. Creatinine Clearance* 26.25; Estimated Glomerular Filt Rate 32 ml/min; Glucose* 168 mg/dL (60-115)
--- NOTE | 2023-07-11 15:04 | P.IMPN_ITS ---
Progress Note: A&P Assessment and plan (1) Diarrhea: Problem details: - started in May, negative C diff on 07/09 - ddx: Viral syndrome, collagenous verses lymphocytic colitis, food intolerance. Stool cultures, O&P pending. - h/o colon CA in 2009, has had normal colonoscopy since then. - trial of Imodium, may need outpatient colonoscopy for further workup if symptoms do not improve Status: Acute (2) Hypercalcemia: Problem details: - chronic, per chart review, unclear source/significance - Resolved with IVF. Monitor. Status: Resolved (3) Acute kidney injury: Problem details: - likely pre renal given diarrhea and decreased po intake - hold nephrotoxins, received IV fluids in the ER and another small bolus on the floor, follow renal function and electrolytes - Improving now Cr is down to 1.6, baseline 1.3. Status: Acute (4) CKD (chronic kidney disease) stage 3, GFR 30-59 ml/min: Problem details: - baseline Cr 1.3, baseline GFR 30s per chart review Status: Chronic (5) Hyperkalemia: Problem details: - 2/2 #1: Received Lokelma, 1 dose of Lasix followed by 500 mL bolus of LR with improvement in potassium - hold nephrotoxins, follow lytes closely - improving. EKG rechecked this am, no signs of peaked T waves or new arrhythmia. Calcium gluconate given for cardiac membrane stabilization. Furosemide was given this morning. I have reviewed meds. Hold off on more LR. Status: Acute (6) Non-insulin dependent diabetes mellitus: Problem details: - last A1C 5.9 03/2023 Status: Acute (7) Normocytic anemia: Problem details: Suspect due to CKD, was likely higher yesterday due to hemoconcentration. Monitor. Status: Acute Subjective Time Seen by Provider: 08:49 Date Seen: 07/11/23 Interval history: Denise feels well. She complains of watery green diarrhea for the past few weeks. It started on 06/20, just two days after arriving in [place] for a visit. She had low appetite and has not had much to eat lately, but did note an improved appetitie this morning. She finished her whole breakfast. Exam Narrative: Exam Narrative: General: No acute distress. Awake, alert, oriented. No pallor. No jaundice. Oropharynx: Clear. Mucous membranes moist. Cardiovascular: Regular rate and rhythm. No murmurs, gallops, or rubs. Respiratory: Clear to auscultation bilaterally. No wheezes or crackles. Abdomen: Bowel sounds present. Soft, nondistended, nontender. Extremities: 2+ bilateral pretibial edema. Const: Vital Signs, click to edit/add: Vital Signs - 24 hr 07/10/23 16:16 07/10/23 16:16 07/10/23 20:15 Temperature 97.5 F L 98.3 F Pulse Rate Pulse Rate [Pulse Oximeter] 66 75 Respiratory Rate 20 20 18 Blood Pressure [Ri ght Arm] 113/68 118/65 Pulse Oximetry 98 98 98 Oxygen Delivery Me thod Room Air Room Air Room Air 07/10/23 23:00 07/10/23 23:00 07/11/23 01:00 Temperature 98.0 F Pulse Rate 67 Pulse Rate [Pulse Oximeter] 67 67 Respiratory Rate 16 Blood Pressure [Ri ght Arm] 107/59 L Pulse Oximetry 97 Oxygen Delivery Me thod Room Air CPAP 07/11/23 05:00 07/11/23 07:00 07/11/23 07:00 Temperature 98.4 F 98.4 F Pulse Rate Pulse Rate [Pulse Oximeter] 74 77 77 Respiratory Rate 18 16 16 Blood Pressure [Ri ght Arm] 105/55 L 107/61 Pulse Oximetry 97 97 Oxygen Delivery Me thod Room Air Room Air 07/11/23 07:00 07/11/23 11:00 Temperature 98.3 F Pulse Rate 71 Pulse Rate [Pulse Oximeter] 75 Respiratory Rate 16 Blood Pressure [Ri ght Arm] 106/67 Pulse Oximetry 99 Oxygen Delivery Me thod Room Air Labs Labs: Laboratory Results - last 24 hr 07/10/23 07/10/23 07/11/23 14:55 18:34 06:00 WBC 10.89 RBC 2.80 L Hgb 8.6 L Hct 26.5 L MCV 95 MCH 31 MCHC 33 RDW Coeff of Anila 15.1 Plt Count 236 Neut % (Auto) 60.4 Lymph % (Auto) 27.5 [place] % (Auto) 9.0 Eos % (Auto) 1.9 Baso % (Auto) 0.5 Neut # (Auto) 6.58 Lymph # (Auto) 2.99 H [place] # (Auto) 1.00 H Eos # (Auto) 0.21 Baso # (Auto) 0.05 Abs Immat Gran (auto) 0.08 Imm/Tot Granulo (auto) 0.7 Sodium 139 140 Potassium 5.3 H 5.7 H Chloride 114 118 H Carbon Dioxide 13 L 12 L Anion Gap 12 10 BUN 103 H 96 H Creatinine 1.9 H 1.7 H Estimated Creat Clear 22.11 24.71 Estimated GFR 26 30 Glucose 147 H 108 Calcium 10.6 9.9 Magnesium 1.8 Total Bilirubin 0.4 AST 14 ALT 14 Alkaline Phosphatase 87 Total Protein 6.4 Albumin 3.7 Stl C. diff Tox B Gene Negative Stl C. diff [id number] PRESUMPTIVE NEGATIVE 07/11/23 14:10 WBC RBC Hgb Hct MCV MCH MCHC RDW Coeff of Anila Plt Count Neut % (Auto) Lymph % (Auto) [place] % (Auto) Eos % (Auto) Baso % (Auto) Neut # (Auto) Lymph # (Auto) [place] # (Auto) Eos # (Auto) Baso # (Auto) Abs Immat Gran (auto) Imm/Tot Granulo (auto) Sodium 140 Potassium 5.4 H Chloride 118 H Carbon Dioxide 12 L Anion Gap 10 BUN 87 H Creatinine 1.6 H Estimated Creat Clear 26.25 Estimated GFR 32 Glucose 168 H Calcium 10.3 Magnesium Total Bilirubin AST ALT Alkaline Phosphatase Total Protein Albumin Stl C. diff Tox B Gene Stl C. diff [id number] 07/11/2023 7:14 a.m. EKG: Sinus rhythm with first-degree AV block. Left axis deviation. Septal infarct, age undetermined.
[2023-07-11] MEDS: ATORVASTATIN 10 MG TABLET 20 MG PO (20:09)
[2023-07-11] MEDS: ATORVASTATIN CALCIUM 40 MG TABLET PO (20:10)
[2023-07-11] MEDS: FAMOTIDINE 20 MG TABLET PO (21:35)
[2023-07-12] VITALS (7 sets, daily range): BP systolic 107–123; BP diastolic 55–68; PULSE 58–75; RESP 16; TEMP 36.7–36.9; O2SAT 94–98
[2023-07-12] MEDS: OMEPRAZOLE 20 MG CAPSULE DR PO (06:10)
--- NOTE | 2023-07-12 06:29 | PC.NURSE ---
End of shift note: Pt noted to be alert & oriented x 4 and able to make needs known. She is able to reposition independently in bed and is independent with transferring/ambulation in room. IV to R FA patent and SL. Nonpitting edema noted to bilateral lower extremities with elevation encouraged. Pt has been continent of bladder throughout the shift and is awaiting stool sample at this time. Pt's DBP noted to run in the 50s during NOC shift which is unchanged compared to vital signs taken on previous shift mechanic. Pt has been afebrile throughout the shift. Pt wears CPAP during night. Pt was given PRN Tylenol for chronic R arm pain at start of shift though has since denied pain when asked.
[2023-07-12 07:13] LABS: Basophils Absolute Auto 0.07 K/uL (0.00-0.30); Basophils Percent Auto 0.6 % (0.0-3.0); Eosinophils Absolute Auto 0.27 K/uL (0.00-0.50); Eosinophils Percent Auto 2.5 % (0.0-7.0); Hematocrit 28.5 % (33.0-51.0); Hemoglobin* 9.3 gm/dL (12.0-16.0); Immature Granulocytes Abs Auto 0.06 K/uL (0.00-0.30); Immature Granulocytes Pct Auto 0.6 %; Lymphocytes Absolute Auto 3.08 K/uL (0.90-2.90); Lymphocytes Percent Auto 28.6 % (20-44); Mean Corpuscular HGB Conc 33 gm/dL (32-36); Mean Corpuscular Hemoglobin 31 pg (26-34); Mean Corpuscular Volume 94 fL (80-100); Monocytes Percent Auto 6.8 % (0.0-11.0); Neutrophils Absolute Auto 6.57 K/uL (1.7-7.0); Neutrophils Percent Auto 60.9 % (42.0-72.0); Platelet Count* 242 K/uL (140-440); RDW Coefficient of Variation % 15.1 % (11.5-15.5); Red Blood Count 3.02 m/uL (4.00-5.20); White Blood Count* 10.78 K/uL (4.50-11.00)
[2023-07-12 07:23] LABS: Chloride* 117 mmol/L (96-114); Sodium* 141 mmol/L (135-149)
[2023-07-12 07:24] LABS: Potassium* 5.2 mmol/L (3.6-5.1); Slide Review Reflex No
[2023-07-12 07:26] LABS: Anion Gap 11 mEq/L (7-15); Blood Urea Nitrogen* 75 mg/dL (7-30); Carbon Dioxide* 13 mmol/L (20-32); Creatinine* 1.4 mg/dL (0.5-1.5); Estimated Glomerular Filt Rate 38 ml/min; Glucose* 110 mg/dL (60-115)
[2023-07-12 07:27] LABS: Calcium* 10.4 mg/dL (8.4-10.6)
[2023-07-12] MEDS: METOPROLOL SUCCINATE (XL) 100 MG TAB PO (09:48)
--- NOTE | 2023-07-12 11:23 | PM.IMPN1 ---
Progress Note: A&P Assessment and plan (1) Diarrhea: Problem details: - started in May, negative C diff on 07/09 - ddx: Viral syndrome, collagenous verses lymphocytic colitis, food intolerance. Stool cultures, O&P pending. - h/o colon CA in 2009, has had normal colonoscopy since then. - trial of Imodium, may need outpatient colonoscopy for further workup if symptoms do not improve - 07/11 possibly resolved, last BM was 24 hours ago. Status: Acute (2) Acute kidney injury: Problem details: - likely pre renal given diarrhea and decreased po intake - hold nephrotoxins, received IV fluids in the ER and another small bolus on the floor, follow renal function and electrolytes - Improving now Cr is down to 1.4, baseline 1.3. Status: Acute (3) CKD (chronic kidney disease) stage 3, GFR 30-59 ml/min: Problem details: - baseline Cr 1.3, baseline GFR 30s per chart review Status: Chronic (4) Hyperkalemia: Problem details: - 2/ #1: Received Lokelma, 1 dose of Lasix followed by 500 mL bolus of LR with improvement in potassium - hold nephrotoxins, follow lytes closely - improving. Recheck in am. Anticipate d/c home tomorrow. Status: Acute (5) Non-insulin dependent diabetes mellitus: Problem details: - last A1C 5.9 03/2023 Status: Acute (6) Normocytic anemia: Problem details: Stable. Suspect due to CKD, was likely higher on admission due to hemoconcentration. F/u with PCP as an outpatient Status: Acute Plan 78 y/o female who had several weeks of watery diarrhea and low appetite which led to dehydration that caused acute kidney injury and hyperkalemia. Diarrhea has now resolved and acute kidney injury and hyperkalemia are improving. I think she will be well enough by tomorrow for discharge home and to restart metformin and her usual furosemide. I will have her hold diclofenac, spironolactone and lisinopril until she sees her PCP, Dr. Lugo in clinic later this week. Subjective Time Seen by Provider: 09:35 Date Seen: 07/12/23 Interval history: Denise feels well today. She is wondering when she can restart her metformin. She noted that she has not had a BM since yesterday morning. She denies pain, bleeding or bruising. We discussed how to use TEDs hose and elevation at home for chronic LE edema. Exam Narrative: Exam Narrative: General: No acute distress. Awake, alert, oriented. No pallor. No jaundice. Oropharynx: Clear. Mucous membranes moist. Cardiovascular: Regular rate and rhythm. No murmurs, gallops, or rubs. Respiratory: Clear to auscultation bilaterally. No wheezes or crackles. Abdomen: Bowel sounds present. Soft, nondistended, nontender. Extremities: 2+ bilateral pretibial edema, unchanged. Const: Vital Signs, click to edit/add: Vital Signs - 24 hr 07/11/23 15:00 07/11/23 15:00 07/11/23 15:00 Temperature 97.8 F Pulse Rate 76 Pulse Rate [Pulse Oximeter] 75 75 Respiratory Rate 16 16 Blood Pressure [Ri ght Arm] 110/68 Pulse Oximetry 99 Oxygen Delivery Me thod Room Air 07/11/23 19:00 07/11/23 22:55 07/11/23 23:00 Temperature 98.3 F Pulse Rate 73 Pulse Rate [Pulse Oximeter] 73 72 Respiratory Rate 16 16 Blood Pressure [Ri ght Arm] 106/67 Pulse Oximetry 96 Oxygen Delivery Me thod Room Air 07/11/23 23:24 07/12/23 03:03 07/12/23 07:00 Temperature 98.2 F 98.0 F 98.3 F Pulse Rate Pulse Rate [Pulse Oximeter] 72 62 60 Respiratory Rate 16 16 16 Blood Pressure [Ri ght Arm] 108/51 L 107/55 L 120/62 Pulse Oximetry 94 95 97 Oxygen Delivery Me thod Room Air CPAP CPAP 07/12/23 07:00 07/12/23 07:00 Temperature Pulse Rate 73 Pulse Rate [Pulse Oximeter] 60 Respiratory Rate 16 Blood Pressure [Ri ght Arm] Pulse Oximetry Oxygen Delivery Me thod Labs Labs: Laboratory Results - last 24 hr 07/11/23 07/12/23 14:10 06:27 WBC 10.78 RBC 3.02 L Hgb 9.3 L Hct 28.5 L MCV 94 MCH 31 MCHC 33 RDW Coeff of Anila 15.1 Plt Count 242 Neut % (Auto) 60.9 Lymph % (Auto) 28.6 [place] % (Auto) 6.8 Eos % (Auto) 2.5 Baso % (Auto) 0.6 Neut # (Auto) 6.57 Lymph # (Auto) 3.08 H [place] # (Auto) 0.70 Eos # (Auto) 0.27 Baso # (Auto) 0.07 Abs Immat Gran (auto) 0.06 Imm/Tot Granulo (auto) 0.6 Sodium 140 141 Potassium 5.4 H 5.2 H Chloride 118 H 117 H Carbon Dioxide 12 L 13 L Anion Gap 10 11 BUN 87 H 75 H Creatinine 1.6 H 1.4 Estimated Creat Clear 26.25 30.00 Estimated GFR 32 38 Glucose 168 H 110 Calcium 10.3 10.4
[2023-07-12] MEDS: ACETAMINOPHEN 325 MG TABLET 650 MG PO (14:26)
[2023-07-12] MEDS: ATORVASTATIN 10 MG TABLET 20 MG PO (18:55)
[2023-07-12] MEDS: ATORVASTATIN CALCIUM 40 MG TABLET PO (18:55)
[2023-07-12] MEDS: SODIUM CHLORIDE 0.9 % (FLUSH) 10 ML SYRINGE 5 ML IVF (20:42)
[2023-07-12] MEDS: FAMOTIDINE 20 MG TABLET PO (20:42)
[2023-07-13 00:13] VITALS: BP 127/69; PULSE 71; RESP 16; TEMP 35.6; O2SAT 99
[2023-07-13] MEDS: ACETAMINOPHEN 325 MG TABLET 650 MG PO (00:18)
[2023-07-13 04:07] VITALS: BP 114/62; PULSE 69; RESP 16; TEMP 36.7; O2SAT 98
[2023-07-13] MEDS: OMEPRAZOLE 20 MG CAPSULE DR PO (06:13)
--- NOTE | 2023-07-13 06:39 | PC.NURSE ---
End of shift note [id number]: Pt noted to be alert & oriented x 4 and able to make needs known. She transfers/ambulates independently in room and remains continent of bladder. IV to R FA patent and SL. VSS and pt has been afebrile. PRN Tylenol administered for c/o 6/10 chronic R shoulder pain which was effective upon followup. Pt remains on tele with NSR with first degree heart block noted which is not a new finding.
[2023-07-13 07:00] VITALS: BP 135/67; PULSE 75; PULSE 87; RESP 20; TEMP 36.9; O2SAT 97
[2023-07-13] MEDS: METOPROLOL SUCCINATE (XL) 100 MG TAB PO (08:20)
[2023-07-13] MEDS: SODIUM CHLORIDE 0.9 % (FLUSH) 10 ML SYRINGE 5 ML IVF (08:20)
[2023-07-13 08:26] LABS: Chloride* 117 mmol/L (96-114)
[2023-07-13 08:27] LABS: Potassium* 5.3 mmol/L (3.6-5.1); Sodium* 140 mmol/L (135-149)
[2023-07-13 08:29] LABS: Anion Gap 9 mEq/L (7-15); Carbon Dioxide* 14 mmol/L (20-32); Creatinine* 1.1 mg/dL (0.5-1.5); Est. Creatinine Clearance* 38.19; Estimated Glomerular Filt Rate 51 ml/min
[2023-07-13 08:30] LABS: Blood Urea Nitrogen* 50 mg/dL (7-30); Calcium* 10.5 mg/dL (8.4-10.6); Glucose* 122 mg/dL (60-115)
--- NOTE | 2023-07-13 09:59 | PM.DS1 ---
DS: Providers Provider Time Seen by Provider: 09:53 Date Seen: 07/13/23 Date of admission: 07/10/23 17:33 Primary care physician: Denise Lugo DO Admitting Clinician: Jeanette Miller MD Attending Physician on discharge: Monique Lloyd MD Date of Discharge: 07/13/23 DS: Diagnosis Discharge Diagnosis (1) Normocytic anemia: Status: Acute Problem details: Stable. Suspect due to CKD, was likely higher on admission due to hemoconcentration. F/u with PCP as an outpatient (2) Diarrhea: Status: Resolved Problem details: - started in May, negative C diff on 07/09 - ddx: Viral syndrome, collagenous verses lymphocytic colitis, food intolerance. Stool cultures, O&P pending. - h/o colon CA in 2009, has had normal colonoscopy since then. - trial of Imodium, may need outpatient colonoscopy for further workup if symptoms do not improve - 07/11 possibly resolved, last BM was 24 hours ago. (3) Acute kidney injury: Status: Resolved Problem details: - likely pre renal given diarrhea and decreased po intake - hold nephrotoxins, received IV fluids in the ER and another small bolus on the floor, follow renal function and electrolytes - Improving now Cr is down to 1.1, baseline 1.3. (4) CKD (chronic kidney disease) stage 3, GFR 30-59 ml/min: Status: Chronic Problem details: - baseline Cr 1.3, baseline GFR 30s per chart review (5) Hypercalcemia: Status: Resolved Problem details: - chronic, per chart review, unclear source/significance - Resolved with IVF. Monitor. (6) Non-insulin dependent diabetes mellitus: Status: Acute Problem details: - last A1C 5.9 03/2023 (7) Hyperkalemia: Status: Acute Problem details: - 2/2 #1: Received Lokelma, 1 dose of Lasix followed by 500 mL bolus of LR with improvement in potassium - hold nephrotoxins, follow lytes closely -improved from admission, still mildly hyperkalemic without symptoms. Renal function has returned to baseline and she is tolerating a regular diet without any diarrhea. I spoke with her today about a low-potassium diet and have asked her to follow-up with her primary care provider for potassium check later this week. I have also asked her to hold several of her antihypertensives which may contribute to hyperkalemia. She may benefit from Nephrology referral if potassium is not improving. (8) Dehydration: Status: Resolved DS: Summary Hospital Course Hospital Course: This is an 78-year-old female with chronic kidney disease and [id number] diabetes mellitus who developed diarrhea few days after arriving in [place] for vacation. Watery diarrhea continued we multiple bowel movements for several weeks. On presentation to the ER on 07/10/2023, she had no abdominal pain or nausea, no bloody stools, but was eating less due to poor appetite and continued to have watery diarrhea. She has a history of colon cancer in 2009 but had a colonoscopy since then that was unremarkable. In the ER she was found to have elevated BUN and creatinine above baseline, dehydration, negative C diff, and elevated potassium of 6.1. She was admitted to the hospital for this and given IV fluids for hydration. Her last BM was the morning of 07/11/2023. She is no longer dehydrated and acute kidney injury has resolved. She remains mildly hyperkalemic and her spironolactone and lisinopril are on hold for that reason. I will have her follow-up with her primary care provider later this week for lab check and visit. Note to primary care provider: She may benefit from nephrology referral. Time Spent with Patient Time attestation: Total time spent providing and/or coordinating discharge services: Exam Narrative: Exam Narrative: General: No acute distress. Awake, alert, oriented. No pallor. No jaundice. Oropharynx: Clear. Mucous membranes moist. Cardiovascular: Regular rate and rhythm. No murmurs, gallops, or rubs. Respiratory: Clear to auscultation bilaterally. No wheezes or crackles. Abdomen: Bowel sounds present. Soft, nondistended, nontender. Extremities: Trace bilateral pretibial edema. Const: Vital Signs, click to edit/add: Vital Signs - 24 hr 07/12/23 11:00 07/12/23 15:00 07/12/23 15:00 Temperature 98.3 F Pulse Rate 73 Pulse Rate [Pulse Oximeter] 63 63 Respiratory Rate 16 16 Blood Pressure [Le ft Arm] Blood Pressure [Ri ght Arm] 123/68 Pulse Oximetry 96 Oxygen Delivery Me thod CPAP 07/12/23 15:00 07/12/23 20:40 07/12/23 23:00 Temperature 98.4 F 98.5 F Pulse Rate Pulse Rate [Pulse Oximeter] 67 75 71 Respiratory Rate 16 16 16 Blood Pressure [Le ft Arm] 116/66 Blood Pressure [Ri ght Arm] 120/67 Pulse Oximetry 94 98 Oxygen Delivery Me thod CPAP CPAP 07/12/23 23:06 07/13/23 00:13 07/13/23 04:07 Temperature 96.1 F L 98.1 F Pulse Rate 58 L Pulse Rate [Pulse Oximeter] 71 69 Respiratory Rate 16 16 Blood Pressure [Le ft Arm] 127/69 114/62 Blood Pressure [Ri ght Arm] Pulse Oximetry 99 98 Oxygen Delivery Me thod CPAP CPAP 07/13/23 07:00 Temperature 98.4 F Pulse Rate Pulse Rate [Pulse Oximeter] 87 Respiratory Rate 20 Blood Pressure [Le ft Arm] 135/67 Blood Pressure [Ri ght Arm] Pulse Oximetry 97 Oxygen Delivery Me thod Room Air DS: Data Data Completed and Pending Completed studies during hospitalization: 07/10/2023 1:22 p.m. EKG: Sinus rhythm with first-degree AV block, 60 beats per minute, left axis deviation, nonspecific interventricular block. 07/11/2023 7:14 a.m. EKG: Sinus rhythm with first-degree AV block, 78 beats per minute, left axis deviation, septal infarct, age undetermined, abnormal EKG. Labs on day of discharge: Labs from last 24 hours 07/13/23 07:50 Sodium 140 Potassium 5.3 H Chloride 117 H Carbon Dioxide 14 L Anion Gap 9 BUN 50 H Creatinine 1.1 Estimated Creat Clear 38.19 Estimated GFR 51 Glucose 122 H Calcium 10.5 Discharge Plan Discharge Disposition: Home, Self-Care Date of Admission: 07/10/23 17:33 Attending Provider on Discharge: Monique Lloyd Primary Care Provider: Denise Lugo Condition: Stable Anticipated Discharge Date/Time: 07/13/23 10:12 Discharge Medications: Continued aspirin [Adult Low Dose Aspirin] 81 mg tablet,delayed release (DR/EC) 81 mg PO DAILY calcium carbonate [Calcium 600] 600 mg calcium (1,500 mg) tablet 600 mg PO DAILY cholecalciferol (vitamin D3) 50 mcg (2,000 unit) tablet 50 mcg PO DAILY cyanocobalamin (vitamin B-12) 1,000 mcg tablet 1,000 mcg PO DAILY nitroglycerin [Nitrostat] 0.4 mg tablet, sublingual 0.4 mg sublingual Q5-15M PRN Rx Instructions: do not exceed 3 doses per episode omeprazole 20 mg capsule,delayed release(DR/EC) 20 mg PO DAILY tramadol 50 mg tablet 50 mg PO DAILY PRN furosemide 40 mg tablet 40 mg PO QAM atorvastatin 40 mg tablet 40 mg PO QPM atorvastatin 20 mg tablet 20 mg PO QPM metoprolol succinate 100 mg tablet extended release 24 hr 100 mg PO DAILY allopurinol 100 mg tablet 200 mg PO DAILY famotidine 20 mg tablet 20 mg PO QPM metformin 500 mg tablet extended release 24 hr 500 mg PO QPM trospium 20 mg tablet 20 mg PO HS Held diclofenac sodium 1 % gel 2 g topical QID PRN Hold Instructions: Resume on 07/17/23. amlodipine 10 mg tablet 10 mg PO DAILY Hold Instructions: Resume on 07/17/23. lisinopril 30 mg tablet 30 mg PO DAILY Hold Instructions: Resume on 07/17/23. Discontinued spironolactone 25 mg tablet 25 mg PO QAM Discharge Orders: Discharge Order (Routine); Ordered 07/13/23 Ordered By: Monique Lloyd Activity Level: No Restrictions Discharge Diet: Diabetic and Renal Follow Up Appointments: Denise Lugo DO [Primary Care Provider] - (3-5 days with a BMP) Forms: [facility] Info Instructions
== END 2023-07-13 12:45 | disposition home or self-care (01) | DRG 641 ==
LOC: ED 15:18 → MEDSURG 15:36
PROVIDERS: Family Medicine; Admitting Provider Family Medicine; Emergency Provider Family Medicine; PCP Family Medicine; Visit Provider Family Medicine
DX: E87.5 Hyperkalemia (principal); N17.8 Other acute kidney failure; E86.0 Dehydration; E83.52 Hypercalcemia; E11.22 Type 2 diabetes mellitus with diabetic chronic kidney disease; D63.1 Anemia in chronic kidney disease; R19.7 Diarrhea, unspecified; N18.30 Chronic kidney disease, stage 3 unspecified; Z79.84 Long term (current) use of oral hypoglycemic drugs; I44.0 Atrioventricular block, first degree; E78.5 Hyperlipidemia, unspecified; I25.10 Atherosclerotic heart disease of native coronary artery without angina pectoris; Z95.5 Presence of coronary angioplasty implant and graft
CPT/HCPCS: 36415; 80048; 80053; 80076; 83605; 83735; 84443; 85025; 86140; 87045; 87046; 87177; 87209; 87427; 87493; 93005; 99284; 99285; A9270; J0613; J1940; J7030; J7120